=== PATIENT | female | born 1955 | race African-American/Black ===

== ENCOUNTER 2018-03-18 21:48 | Inpatient (IN) | payer OTHER ==
[~2018-03-18] VITALS: Ht 165.1 cm; Wt 92.8 kg
--- NOTE | ~2018-03-18 | EKG ---
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
--- NOTE | ~2018-03-18 | 2DMMODE ---
[facility] [address] [place] [address] 2 D/M-MODE ECHOCARDIOGRAM Name: ANGELIQUE KIMBLE Room #: 210-P [facility] IN ..#: [id number] Admission: 03/18/18 Attend Phys: Dilan Blair, Discharge: Date of : 57 Date of Service: 03/19/18 1109 Report #: [id number] THIS REPORT FOR: //name// APPROVED REPORT Study performed: 03/19/2018 09:25:55 EXAM: Comprehensive 2D, Doppler, and color-flow Echocardiogram Patient Location: Bedside Room #: 210 Status: routine BSA: 1.98 HR: 70 bpm BP: 158/85 mmHg Other Information Study Quality: Adequate Indications COPD Hypertension/HDD 2D Dimensions RVDd: 36.03 mm IVSd: 10.62 (7-11mm) LVOT Diam: 19.96 (18-24mm) LVDd: 36.80 mm PWd: 10.46 (7-11mm) Ascending Ao: 28.50 (22-36mm) LVDs: 25.04 (25-40mm) Aortic Root: 28.49 mm IVC: 12.00 mm Volumes Left Atrial Volume (Systole) Single Plane 4CH: 51.80 mL Single Plane 2CH: 63.38 mL LA ESV Index: 27.00 mL/m2 Aortic Valve AoV Peak Casey.: 1.60 m/s AO Peak Gr.: 10.25 mmHg LVOT Max P.82 mmHg LVOT Max V: 1.49 m/s CAROLYN Vmax: 2.90 cm2 Mitral Valve E/A Ratio: 0.7 MV Decel. Time: 343.89 ms MV E Max Casey.: 1.01 m/s [facility] [address] [place] [address] 2 D/M-MODE ECHOCARDIOGRAM Name: ANGELIQUE KIMBLE Room #: 210-[facility] IN ..#: [id number] Admission: 03/18/18 Attend Phys: Dilan Blair, Discharge: Date of : 57 Date of Service: 03/19/18 1109 Report #: [id number] MV A Casey.: 1.39 m/s MV PHT: 99.73 ms IVRT: 148.79 ms Pulmonary Valve PV Peak Casey.: 0.92 m/s PV Peak Gr.: 3.41 mmHg Pulmonary Vein P Vein S: 0.42 m/s P Vein A: 0.32 m/s P Vein D: 0.52 m/s P Vein A Dur.: 138.4 msec P Vein S/D Ratio: 0.81 Tricuspid Valve TR Peak Casey.: 2.90 m/s RAP Estimate: 5.00 mmHg TR Peak Gr.: 33.63 mmHg PA Pressure: 39.00 mmHg Left Ventricle The left ventricle is normal size. Mild concentric left ventricular hypertrophy. Left ventricular systolic function is hyperdynamic. LVEF is 65-70%. Mild diastolic dysfunction is present (impaired relaxation pattern). Right Ventricle The right ventricle is normal size. The right ventricular systolic function is normal. Atria The left atrium size is normal. The right atrium size is normal. Aortic Valve The aortic valve is normal in structure. No aortic regurgitation is present. There is no aortic valvular stenosis. Mitral Valve Mild mitral annular calcification. Trace to mild mitral regurgitation. No evidence of mitral valve stenosis. Tricuspid Valve The tricuspid valve is normal in structure. Mild to moderate tricuspid regurgitation. PAP is estimated at 39 mmHg. Pulmonic Valve Pulmonic valve is not well visualized. There is no pulmonic valvular regurgitation noted. [address] [address] 2 D/M-MODE ECHOCARDIOGRAM Name: LAMINANGELIQUE Room #: 210-P [facility] IN [facility]#: [id number] Admission: 03/18/18 Attend Phys: Dilan Blair, Discharge: Date of : 57 Date of Service: 03/19/18 1109 Report #: [id number] Great Vessels The aortic root is normal in size. IVC is normal in size and collapses >50% with inspiration. Pericardium There is no pericardial effusion. <Conclusion> The left ventricle is normal size. Mild concentric left ventricular hypertrophy. Left ventricular systolic function is hyperdynamic. Mild diastolic dysfunction is present (impaired relaxation pattern). The right ventricle is normal size. The right atrium size is normal. There is no aortic valvular stenosis. Mild mitral annular calcification. Trace to mild mitral regurgitation. Mild to moderate tricuspid regurgitation. PAP is estimated at 39 mmHg. <ELECTRONICALLY SIGNED> By: Edenilson Taylor MD 03/19/18 1109 1109 08 Edenilson Taylor MD /INF
--- NOTE | ~2018-03-18 | HC ---
[facility] [place] [place] [address] CONSULTATION Name: ANGELIQUE KIMBLE Room #: 210-P [facility] IN M.R.#: [id number] Admission: 03/18/18 Attend Phys: Dilan Blair MD Discharge: 03/19/18 Date of : 57 Report #: [id number] THIS REPORT FOR: //name// CC: Dilan Mast DATE OF SERVICE: 03/19/2018 TYPE OF REPORT: Cardiology consultation. INDICATION: Chest pain. HISTORY OF PRESENT ILLNESS: This is a 63-year-old female presenting with chest discomfort. She describes heaviness in the substernal area, radiating into the back and neck area. It has been persistent for several hours in duration. She has taking Rolaids and Tums with partial relief, but the pain returns. At times, it will improve with movement of her upper extremities. There are no associated symptoms of diaphoresis, dyspnea or palpitations. She denies any history of orthopnea, fever or chills. PAST MEDICAL HISTORY: Hypertension, lupus and fibromyalgia. ALLERGIES: Include SULFA, CODEINE and TRAMADOL. MEDICATIONS: At home include Symbicort, amlodipine 10 mg, Lotensin 20 mg, Xanax, prednisone and Pepcid. SOCIAL HISTORY: Positive for tobacco use, 6 cigarettes per day. FAMILY HISTORY: Negative for premature CAD. REVIEW OF SYSTEMS: A full 10-point review of systems performed, only the pertinent positives and negatives are described in the HPI. PHYSICAL EXAMINATION: VITAL SIGNS: Blood pressure is 158/85 and heart rate 67 beats per minute. GENERAL APPEARANCE: A well-developed, well-nourished female in no acute distress. HEENT: Normocephalic and atraumatic. Oral mucosa moist. NECK: Supple. LUNGS: Clear to auscultation. CARDIAC: Regular rate and rhythm. S1 and S2 positive. ABDOMEN: Soft and nontender. EXTREMITIES: No cyanosis and no edema. RADIOLOGICAL DATA: ECG reveals sinus rhythm, poor R-wave progression. [facility] [address] [place] [address] CONSULTATION Name: ANGELIQUE KIMBLE Lizette Room #: 210-[facility] IN M.R.#: [id number] Admission: 03/18/18 Attend Phys: Dilan Blair MD Discharge: 03/19/18 Date of : 57 Report #: [id number] LABORATORY VALUES: Peak troponin 0.11. LDL is 80. White count is 10.1 and hemoglobin is 14.1. Creatinine is 0.8. ASSESSMENT AND PLAN: 1. Chest pain syndrome, with a troponin level in the indeterminate range. She has had several hours of chest discomfort with no significant ECG changes and the troponin level is in the indeterminate range. Unclear if this is ischemia related. Other considerations include gastrointestinal, musculoskeletal, etc. We will proceed with noninvasive stress testing. 2. Hypertension, elevated blood pressure, continue with Norvasc and angiotensin-converting enzyme inhibitor. 3. Gastroesophageal reflux disease, start proton pump inhibitor. 4. Chronic obstructive pulmonary disease, continue with HandiHaler. 5. Tobacco use, complete smoking cessation is advised. <ELECTRONICALLY SIGNED> By: Edenilson Taylor MD 03/20/18 0806 0913 0003 Edenilson Taylor MD /nt
--- NOTE | ~2018-03-18 | EKG ---
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1955 Requested By: Heidi Sheffield Order Number: [id number] MD: Julio Ren Measurements Intervals [place] Rate: 81 P: 68 NC: 162 QRS: -19 QRSD: 84 T: 67 QT: 421 QTc: 489 Interpretive Statements Sinus rhythm Atrial premature complex Probable left atrial enlargement Borderline left axis deviation Anterior infarct, old Compared to ECG 08/14/2009 11:53:43 Atrial premature complexes now present Electronically Signed On 03-19-2018 8:12:08 CDT by Julio Ren [email or web address] <ELECTRONICALLY SIGNED> By: Julio Ren MD, [facility] 03/19/18 0812 2338 2338 Julio Ren MD, [facility] /EPI
[~2018-03-18 21:48] MED LIST: SULAR
[2018-03-18 21:49] VITALS: BP 155/108
[2018-03-18 22:44] LABS: ABSOLUTE NEUTROPHILS 8.4 thou/uL (1.4-8.2); BASOPHILS 0.2 % (0.0-2.0); EOSINOPHILS 0.1 % (0.0-3.0); HEMATOCRIT 41.8 % (37.0-47.0); HEMOGLOBIN 14.1 gm/dL (12.0-15.0); LYMPHOCYTES 11.3 % (24.0-44.0); MCH 30.7 pg (26.0-34.0); MCHC 33.6 g/dL (28.0-37.0); MCV 91.2 fL (80.0-100.0); MONOCYTES 5.4 % (1.0-8.0); PLATELET COUNT 315 thou/uL (150-400); RBC 4.58 mil/uL (4.20-5.00); WBC 10.1 thou/uL (4.0-11.0)
[2018-03-18 22:51] LABS: CALCIUM 10.3 mg/dL (8.5-10.1); CREATININE 0.8 mg/dL (0.6-1.0); POTASSIUM 4.8 mmol/L (3.5-5.1)
[2018-03-18 22:59] LABS: ALBUMIN 3.3 g/dL (3.4-5.0); TOTAL BILIRUBIN 0.6 mg/dL (<0.1-1.0); TOTAL PROTEIN 7.7 g/dL (6.4-8.2); TROPONIN-I 0.09 ng/mL (<0.06)
[2018-03-18] MEDS ORDERED: NORVASC10 MG PO (23:20)
[2018-03-18] MEDS ORDERED: IBUPROFEN 800800 M1 PO (23:21)
[2018-03-18] MEDS ORDERED: BENAZEPRIL HCL20 MG PO (23:22)
[2018-03-18] MEDS ORDERED: XANAX1 MG PO (23:23)
[2018-03-18] MEDS ORDERED: PREDNISONE 10 M10 MG PO (23:24)
[2018-03-18] MEDS ORDERED: INCRUSE ELLI62.5 MCG IH (23:25)
[2018-03-18] MEDS ORDERED: PEPCID20 MG PO (23:26)
[2018-03-18] MEDS ORDERED: ZANAFLEX4 MG PO (23:27)
[2018-03-19] VITALS (7 sets, daily range): BP systolic 150–171; BP diastolic 71–92
[2018-03-19] MEDS ORDERED: SYMBICORT160 MCG/4. INH (00:52)
[2018-03-19] MEDS ORDERED: TRAZODONE HCL50 MG PO (00:55)
[2018-03-19 04:44] LABS: CHOLESTEROL 163 mg/dL (<200); HDL CHOLESTEROL 74 mg/dL (>40); LDL CHOLESTEROL 80 mg/dL (<100); TC:HDL 2.2 Ratio (Not establshd); TRIGLYCERIDE 49 mg/dL (<150); TROPONIN-I 0.11 ng/mL (<0.06); VLDL 10 mg/dL (<40)
[2018-03-19 04:45] LABS: SERUM ASSESSMENT Clear
[2018-03-19] MEDS ORDERED: VITAMIN D5000 UNIT PO (14:22)
[2018-03-19] MEDS ORDERED: ASPIRIN325 PO (14:22)
[2018-03-20 00:06] LABS: GLYCOHEMOGLOBIN (HGB A1C) 5.8 % (4.8-5.6)
== END 2018-03-19 16:16 | disposition home or self-care (01) | DRG 391 ==
LOC: ER 21:48 → 2N 23:40 → EROBS 23:40 → 2N 03-19 00:31
PROVIDERS: Nurse Practitioner Acute Care; Student in an Organized Health Care Education/Training Program
DX: K21.9 Gastro-esophageal reflux disease without esophagitis (principal); E43 Unspecified severe protein-calorie malnutrition; R07.9 Chest pain, unspecified; I10 Essential (primary) hypertension; J44.9 Chronic obstructive pulmonary disease, unspecified; F17.210 Nicotine dependence, cigarettes, uncomplicated; M32.9 Systemic lupus erythematosus, unspecified; M47.9 Spondylosis, unspecified; Z86.19 Personal history of other infectious and parasitic diseases; Z88.6 Allergy status to analgesic agent; Z88.2 Allergy status to sulfonamides; Z88.8 Allergy status to other drugs, medicaments and biological substances; Z83.3 Family history of diabetes mellitus; Z79.899 Other long term (current) drug therapy